=== PATIENT | female | born 1990 | race Caucasian/White ===

== ENCOUNTER 2017-09-26 17:04 | Inpatient (IN) | payer MEDICAID ==
[2017-09-26 18:38] LABS: ADD UMIC YES; UR ASCORBIC ACID NEGATIVE (NEGATIVE); UR BACTERIA FEW /HPF (NONE SEEN); UR BILIRUBIN (Dip) NEGATIVE (NEGATIVE); UR BLOOD (Dip) NEGATIVE (NEGATIVE); UR CLARITY CLEAR (CLEAR); UR COLOR YELLOW (YELLOW); UR GLUCOSE (Dip) NEGATIVE (NEGATIVE); UR KETONES (Dip) 1+ mg/dL (NEGATIVE); UR LEUKOCYTE ESTERASE (Dip) 1+ Leu/ul (NEGATIVE); UR NITRITE (Dip) NEGATIVE (NEGATIVE); UR RBC 0 /HPF (0-5); UR SQUAMOUS EPITHELIAL CELL FEW /HPF (FEW); UR TOTAL PROTEIN (Dip) NEGATIVE (NEGATIVE); UR UROBILINOGEN (Dip) NEGATIVE (NEGATIVE); UR WBC 1 /HPF (0-5)
[2017-09-26 18:48] LABS: ADD MAN DIFF? NO
[2017-09-26 18:49] LABS: WHITE BLOOD COUNT 9.2 10^3/ul (4.8-10.8)
[2017-09-26 18:49] LABS: BASOPHILS % 0.3 % (0.0-2.0); HEMOGLOBIN 9.3 g/dl (12.0-16.0); LYMPHOCYTES % 21.4 % (15.0-51.0); MEAN CORPUSCULAR HEMOGLOBIN 25.3 pg (29.0-33.0); MEAN CORPUSCULAR VOLUME 81.7 fl (82.0-101.0); MONOCYTE # 0.4 10^3/ul (0.3-0.9); MONOCYTES % 4.1 % (0.0-11.0); NEUTROPHIL # 6.8 10^3/ul (1.6-7.5); NEUTROPHILS % 73.7 % (39.0-77.0); PLATELET COUNT 330 10^3/UL (140-415); RED BLOOD COUNT 3.67 10^6/ul (4.20-5.40); RED CELL DISTRIBUTION WIDTH 15.5 % (11.5-14.5)
[2017-09-26] MEDS: AMPICILLIN 2 GM/NS (PMX) 100 ML IV (18:56)
[2017-09-26] MEDS ORDERED: IBUPROFEN 600 MG TAB PO (19:00)
[2017-09-26] MEDS ORDERED: MISOPROSTOL 200 MCG TAB PR (19:00)
[2017-09-26] MEDS ORDERED: CARBOPROST 250 MCG INJ IM (19:00)
[2017-09-26] MEDS ORDERED: BUTORPHANOL 2 MG INJ IV (19:00)
[2017-09-26] MEDS ORDERED: METHYLERGONOVINE 0.2 MG INJ IM (19:00)
[2017-09-26] MEDS ORDERED: LIDOCAINE 1% (MPF) 30 ML INJ INJ (19:00)
[2017-09-26] MEDS ORDERED: OXYTOCIN 30 UNITS/LR 500 ML IV (19:00)
[2017-09-26] MEDS: LACTATED RINGER'S 1,000 ML IV ×2 (19:01→19:33)
[2017-09-26 19:12] LABS: INR 0.99; PROTIME 13.2 Sec (11.9-14.9)
[2017-09-26 19:13] LABS: PARTIAL THROMBOPLASTIN TIME 29.9 Sec (25.0-35.0)
[2017-09-26] MEDS ORDERED: FENTAnyl 2MCG/ML-ROPIV 0.2% 100 ML (19:35)
[2017-09-26 19:36] LABS: AMPHETAMINE/METHAMPHETAMINE Negative (NEGATIVE); BARBITURATES Negative (NEGATIVE); BENZODIAZEPINES Negative (NEGATIVE); CANNABINOIDS Negative (NEGATIVE); COCAINE Negative (NEGATIVE); OPIATES Negative (NEGATIVE)
[2017-09-26] MEDS ORDERED: FENTAnyl 2MCG/ML-ROPIV 0.2% 100 ML BAG EPI (20:00)
[2017-09-26] MEDS ORDERED: NALOXONE (0.4 MG/ML) INJ IV (20:00)
[2017-09-26] MEDS ORDERED: DIPHENHYDRAMINE 50 MG INJ IV (20:00)
[2017-09-26] MEDS ORDERED: ONDANSETRON 4 MG INJ IV (20:00)
[2017-09-26 20:32] LABS: HEPATITIS B SURFACE ANTIGEN NEGATIVE (NEGATIVE)
[2017-09-26] MEDS: ACETAMINOPHEN 325 MG TAB PO (21:02)
[2017-09-26] MEDS: AMPICILLIN 1 GM/NS (PMX) 50 ML IV (23:20)
[2017-09-27] MEDS: LACTATED RINGER'S 1,000 ML IV (01:10)
[2017-09-27] MEDS: OXYTOCIN 30 UNITS/LR 500 ML IV ×2 (02:41→03:23)
[2017-09-27] MEDS: AMPICILLIN 1 GM/NS (PMX) 50 ML IV (03:00)
[2017-09-27] MEDS: ACETAMINOPHEN 325 MG TAB PO (03:48)
[2017-09-27] MEDS ORDERED: MISOPROSTOL 200 MCG TAB PR (06:00)
[2017-09-27] MEDS ORDERED: OXYCODONE/ASPIRIN (4.88/325) TAB PO (06:00)
[2017-09-27] MEDS ORDERED: CARBOPROST 250 MCG INJ IM (06:00)
[2017-09-27] MEDS ORDERED: ZOLPIDEM 5 MG TAB PO (06:00)
[2017-09-27] MEDS ORDERED: METHYLERGONOVINE 0.2 MG INJ IM (06:00)
[2017-09-27] MEDS ORDERED: OXYTOCIN 30 UNITS/LR 500 ML IV (06:00)
[2017-09-27] MEDS: IBUPROFEN 600 MG TAB PO ×4 (06:22→23:27)
[2017-09-27] MEDS: SENNA/DOCUSATE NA (8.6MG/50MG) TAB PO ×2 (09:37→20:42)
[2017-09-27] MEDS: OXYCODONE/ASPIRIN (4.88/325) TAB PO (10:08)
[2017-09-27 15:22] LABS: RAPID PLASMA REAGIN NONREACTIVE (NR)
[2017-09-27] MEDS: BENZOCAINE 20% 56 ML SPRAY TOP (20:49)
[2017-09-27] MEDS: WITCH HAZEL/GLYCERIN PAD PR (20:49)
[2017-09-27] MEDS: LANOLIN 7 GM TUBE TOP (20:49)
[2017-09-28] MEDS: IBUPROFEN 600 MG TAB PO ×3 (05:53→17:42)
[2017-09-28] MEDS ORDERED: MISOPROSTOL 200 MCG TAB PR (08:00)
[2017-09-28] MEDS ORDERED: ZOLPIDEM 5 MG TAB PO (08:00)
[2017-09-28] MEDS ORDERED: CARBOPROST 250 MCG INJ IM (08:00)
[2017-09-28] MEDS ORDERED: LANOLIN 7 GM TUBE TOP (08:00)
[2017-09-28] MEDS ORDERED: METHYLERGONOVINE 0.2 MG INJ IM (08:00)
[2017-09-28] MEDS ORDERED: WITCH HAZEL/GLYCERIN PAD PR (08:00)
[2017-09-28] MEDS ORDERED: OXYTOCIN 30 UNITS/LR 500 ML IV (08:00)
[2017-09-28] MEDS ORDERED: BENZOCAINE 20% 56 ML SPRAY TOP (08:00)
[2017-09-28] MEDS ORDERED: OXYCODONE/ASPIRIN (4.88/325) TAB PO ×2 (08:00)
[2017-09-28] MEDS: SENNA/DOCUSATE NA (8.6MG/50MG) TAB PO ×2 (09:07→21:00)
[2017-09-28 09:54] LABS: ADD MAN DIFF? NO
[2017-09-28 10:00] LABS: WHITE BLOOD COUNT 9.6 10^3/ul (4.8-10.8)
[2017-09-28 10:00] LABS: BASOPHILS % 0.3 % (0.0-2.0); EOSINOPHILS # 0.1 10^3/ul (0.0-0.5); EOSINOPHILS % 0.9 % (0.0-7.0); HEMOGLOBIN 8.9 g/dl (12.0-16.0); LYMPHOCYTES # 3.1 10^3/ul (0.8-2.9); LYMPHOCYTES % 31.8 % (15.0-51.0); MEAN CORPUSCULAR HEMOGLOBIN 25.5 pg (29.0-33.0); MEAN CORPUSCULAR HGB CONC 30.7 g/dl (32.0-37.0); MEAN CORPUSCULAR VOLUME 83.1 fl (82.0-101.0); MEAN PLATELET VOLUME 11.6 fl (7.4-10.4); MONOCYTE # 0.5 10^3/ul (0.3-0.9); MONOCYTES % 5.6 % (0.0-11.0); NEUTROPHIL # 5.8 10^3/ul (1.6-7.5); NEUTROPHILS % 60.7 % (39.0-77.0); PLATELET COUNT 334 10^3/UL (140-415); RED BLOOD COUNT 3.49 10^6/ul (4.20-5.40)
[2017-09-28 12:41] LABS: RUBELLA ANTIBODY - IGG 1.57 index
[2017-09-29] MEDS: IBUPROFEN 600 MG TAB PO ×3 (00:38→12:20)
[2017-09-29] MEDS ORDERED: DIPHTH/TET/ACEL PERTUSS (ADULT) 0.5 ML VIAL IM* (09:00)
[2017-09-29] MEDS: DIPHTH/TET/ACEL PERTUSS (ADULT) 0.5 ML VIAL IM* (09:00)
[2017-09-29] MEDS: SENNA/DOCUSATE NA (8.6MG/50MG) TAB PO (09:07)
[2017-10-01 12:01] LABS: RUBELLA ANTIBODY - IGM <20.00 AU/mL
== END 2017-09-29 13:39 | disposition home or self-care (01) | DRG 775 ==
LOC: OBT 17:04 → PP1 09-27 05:14 → L-D 17:05 → OBT 18:28 → L-D 18:28
PROC: 10E0XZZ Delivery of Products of Conception, External Approach (ICD-10-PCS; principal; 2017-09-26)
PROC: 0HQ9XZZ Repair Perineum Skin, External Approach (ICD-10-PCS; 2017-09-26)
PROC: 3E033VJ Introduction of Other Hormone into Peripheral Vein, Percutaneous Approach (ICD-10-PCS; 2017-09-26)
DX: O69.81X0 Labor and delivery complicated by cord around neck, without compression, not applicable or unspecified (principal); O70.0 First degree perineal laceration during delivery; Z3A.37 37 weeks gestation of pregnancy; Z37.0 Single live birth
CPT/HCPCS: 62319; 76815; 76817; 76818; 80307; 81001; 85025; 85610; 85730; 86592; 86762; 86900; 86901; 87340; 90715; 99464

== ENCOUNTER 2018-01-05 20:43 | Emergency (ER) | payer OTHER, MEDICAID | END 2018-01-06 02:18 | disposition left against medical advice (07) | LOC: FTE 01-06 02:18 | DX: Z53.21 Procedure and treatment not carried out due to patient leaving prior to being seen by health care provider (principal) ==